=== PATIENT | male | born 1970 | race American Indian/Alaskan Native ===

== ENCOUNTER 2017-05-03 15:48 | Emergency (ER) | payer SELFPAY ==
[2017-05-03] MEDS ORDERED: ASPIRIN PO ONE (16:35)
[2017-05-03] MEDS ORDERED: NITROSTAT SL ONE (16:35)
--- NOTE | 2017-05-03 16:35 | Emergency Department Report ---
Blank Doc - Documentation Documentation: Patient is a 46-year-old [place] male who is presenting with chest discomfort. Patient states the tightness worse at night. Patient states is been off and on for the past week. Patient states this accompanied with shortness of breath and diaphoresis. Patient took her blood pressures morning was elevated. He is on new medications for blood pressure but doesn't seem to be working yet. Line patient will be sent to the main area to undergo a cardiac workup.
[2017-05-03 16:52] LABS: Basophils # (Auto) 0.1 K/mm3 (0.0-0.1); Basophils % (Auto) 0.8 % (0.0-1.8); Eosinophils # (Auto) 0.1 K/mm3 (0.0-0.4); Eosinophils % (Auto) 1.3 % (0.0-4.3); Hematocrit 44.2 % (35.5-45.6); Hemoglobin 14.5 gm/dl (11.8-15.2); Lymphocytes # (Auto) 1.4 K/mm3 (1.2-5.4); Lymphocytes % (Auto) 21.9 % (13.4-35.0); Mean Corpuscular HGB Conc 33 % (32-34); Mean Corpuscular Hemoglobin 29 pg (28-32); Mean Corpuscular Volume 88 fl (84-94); Monocytes # (Auto) 0.4 K/mm3 (0.0-0.8); Monocytes % (Auto) 5.8 % (0.0-7.3); Platelet Count 383 K/mm3 (140-440); Red Blood Count 5.04 M/mm3 (3.65-5.03)
--- NOTE | 2017-05-03 17:01 | Emergency Department Report ---
ED Chest Pain HPI - General Chief Complaint: Chest Pain Stated Complaint: CP/NAUSEA/HEADACHE Time Seen by Provider: 05/03/17 16:30 Source: patient Mode of arrival: Ambulatory Limitations: No Limitations - History of Present Illness Initial Comments: This is patient's second visit to an emergency room since Monday for evaluation of chest pain. He states the chest pain is left-sided to substernal and does not radiate. Oddly he states that he has some discomfort in his left wrist which she thinks is related to a ganglion cyst. He states when he squeezes that area the chest pain seems to improve. However, he also states the chest pain occurs on exertion and is associated with shortness of breath. He denies nausea to me. However the triage note states nausea with headaches. He denies hypertension today however the triage note states recently started blood pressure medicines. He appears to be a somewhat poor historian. He states he was seen at [facility] for similar symptoms in the emergency department on Monday and discharged. MD Complaint: chest pain -: Gradual Onset: during exertion Pain Location: substernal, left chest Pain Radiation: none Severity: moderate Quality: tightness Consistency: intermittent, now resolved Improves With: nothing Worsens With: nothing re: other (states sweaty when he woke up this morning) Other Symptoms: denies: cough, fever, syncope, rash, acid taste in mouth, leg swelling, palpitations, burping Treatments Prior to Arrival: none Aspirin use within the Past 7 Days: (0) No (given aspirin today already) - Related Data On Oral Contraceptives: No Home Medications Medication Instructions Recorded Confirmed Last Taken Hydrochlorothiazide 25 mg PO DAILY 05/03/17 05/03/17 Unknown Allergies Allergy/AdvReac Type Severity Reaction Status Date / Time No Known Allergies Allergy Verified 05/03/17 17:23 Heart Score - HEART Score History: Slightly suspicious EKG: Normal Age: 45-65 Risk factors: 1-2 risk factors Troponin: < normal limit HEART Score: 2 - Critical Actions Critical Actions: 0-3 pts:0.9-1.7%risk of adverse cardiac event.Candidate for discharge ED Review of Systems ROS: Stated complaint: CP/NAUSEA/HEADACHE Other details as noted in HPI Constitutional: denies: chills, fever Eyes: denies: eye pain, eye discharge, vision change ENT: denies: ear pain, throat pain Respiratory: shortness of breath. denies: cough, wheezing Cardiovascular: chest pain. denies: palpitations Endocrine: no symptoms reported Gastrointestinal: denies: abdominal pain, nausea, diarrhea Genitourinary: denies: urgency, dysuria Musculoskeletal: denies: back pain, joint swelling, arthralgia Skin: denies: rash, lesions Neurological: denies: headache, weakness, paresthesias Psychiatric: denies: anxiety, depression Hematological/Lymphatic: denies: easy bleeding, easy bruising ED Past Medical Hx - Past Medical History Hx Hypertension: Yes - Social History Smoking Status: Unknown if ever smoked Substance Use Type: None - Medications Home Medications: Home Medications Medication Instructions Recorded Confirmed Last Taken Type Hydrochlorothiazide 25 mg PO DAILY 05/03/17 05/03/17 Unknown History ED Physical Exam - General Limitations: No Limitations General appearance: alert, in no apparent distress - Head Head exam: Present: atraumatic, normocephalic - Eye Eye exam: Present: normal appearance, PERRL, EOMI. Absent: scleral icterus - ENT ENT exam: Present: mucous membranes moist - Neck Neck exam: Present: normal inspection. Absent: tenderness, meningismus - Respiratory Respiratory exam: Present: normal lung sounds bilaterally. Absent: respiratory distress - Cardiovascular Cardiovascular Exam: Present: regular rate, normal rhythm. Absent: systolic murmur, diastolic murmur, rubs, gallop - GI/Abdominal GI/Abdominal exam: Present: soft, normal bowel sounds. Absent: distended, tenderness, guarding, rebound, rigid - Rectal Rectal exam: Present: deferred - Extremities Exam Extremities exam: Present: other (ganglion cyst left wrist) - Back Exam Back exam: Present: normal inspection - Neurological Exam Neurological exam: Present: alert, oriented X3, CN II-XII intact. Absent: motor sensory deficit - Psychiatric Psychiatric exam: Present: normal affect, normal mood - Skin Skin exam: Present: warm, dry, intact, normal color. Absent: rash ED Course Vital Signs 05/03/17 05/03/17 05/03/17 16:07 17:19 17:22 Temperature 97.5 F L Pulse Rate 74 61 61 Respiratory 18 16 Rate Blood Pressure 156/94 173/96 Blood Pressure 173/96 [Left] O2 Sat by Pulse 98 100 Oximetry - Reevaluation(s) Reevaluation #1: Patient referred to Dr. Almanza. 05/03/17 17:45 SHARI score - Shari Score Age > 65: (0) No Aspirin use within the Past 7 Days: (0) No 3 or more CAD Risk Factors: (0) No 2 or more Angina events in past 24 hrs: (0) No Known CAD with more than 50% Stenosis: (0) No Elevated Cardiac Markers: (0) No ST Deviation Greater than 0.5mm: (0) No SHARI Score: 0 ED Medical Decision Making - Lab Data Result diagrams: 05/03/17 16:39 05/03/17 16:39 Laboratory Results - last 24 hr 05/03/17 16:39 WBC 6.6 RBC 5.04 H Hgb 14.5 Hct 44.2 MCV 88 MCH 29 MCHC 33 RDW 14.0 Plt Count 383 Lymph % (Auto) 21.9 [place] % (Auto) 5.8 Eos % (Auto) 1.3 Baso % (Auto) 0.8 Lymph # 1.4 [place] # 0.4 Eos # 0.1 Baso # 0.1 Seg Neutrophils % 70.2 H Seg Neutrophils # 4.6 Laboratory Results - last 24 hr 05/03/17 05/03/17 16:39 16:39 WBC 6.6 RBC 5.04 H Hgb 14.5 Hct 44.2 MCV 88 MCH 29 MCHC 33 RDW 14.0 Plt Count 383 Lymph % (Auto) 21.9 [place] % (Auto) 5.8 Eos % (Auto) 1.3 Baso % (Auto) 0.8 Lymph # 1.4 [place] # 0.4 Eos # 0.1 Baso # 0.1 Seg Neutrophils % 70.2 H Seg Neutrophils # 4.6 Sodium 134 L Potassium 3.8 Chloride 97.8 L Carbon Dioxide 25 Anion Gap 15 BUN 8 L Creatinine 1.1 Estimated GFR > 60 BUN/Creatinine Ratio 7 Glucose 116 H Calcium 9.5 Total Bilirubin 0.20 AST 19 ALT 15 Alkaline Phosphatase 65 Total Protein 7.8 Albumin 4.6 Albumin/Globulin Ratio 1.4 - EKG Data -: EKG Interpreted by Me EKG shows normal: sinus rhythm, axis, intervals, QRS complexes, ST-T waves Rate: normal - EKG Data Interpretation: normal EKG - Radiology Data interpreted by me: Chest x-ray no acute process Critical care attestation.: If time is entered above; I have spent that time in minutes in the direct care of this critically ill patient, excluding procedure time. ED Disposition Clinical Impression: Essential hypertension Chest pain Qualifiers: Chest pain type: unspecified Qualified Code(s): R07.9 - Chest pain, unspecified Disposition: OP ADMIT IP TO THIS HOSP Is pt being admited?: Yes Does the pt Need Aspirin: Yes Condition: Stable Instructions: Chest Pain (ED), Hypertension (ED) Referrals: PRIMARY CARE, [Primary Care Provider] - 3-5 Days Time of Disposition: 17:44
[2017-05-03 17:06] LABS: Alanine Aminotransferase 15 units/L (7-56); Albumin 4.6 g/dL (3.9-5); BUN/Creatinine Ratio 7; Blood Urea Nitrogen 8 mg/dL (9-20); Calcium 9.5 mg/dL (8.4-10.2); Hemolysis Index 7
[2017-05-03] MEDS ORDERED: NITRO-BID 2% TP ONE (17:44)
--- NOTE | 2017-05-03 17:51 | XRay Report ---
FINAL REPORT PROCEDURE: Chest. TECHNIQUE: PA and lateral views. HISTORY: Chest pain. COMPARISON: No prior studies are available for comparison. FINDINGS: The heart and mediastinum appear normal. The lungs are clear and well expanded. There are no pleural effusions. The soft tissues and regional skeleton are unremarkable. IMPRESSION: Normal study.
--- NOTE | 2017-05-03 18:06 | History and Physical Report ---
History of Present Illness Chief complaint: My chest hurts History of present illness: 46 YO Male with HTN, GERD, Obesity presents to ED for evaluation of Chest pain. Pt seen and evaluated and treated with cardiac enzyme evaluation, ekg, telemetry , and d dimer evaluation which were normal, EKG showed no evidence of ischemia. Pt treated with PPI therapy with improvement in symptoms. Pt noncompliant with outpatient antihypertensive medication. Pt medically optimized and back to usual state of health. Pt discharged home and instructed to f/u pcp 1wk with blood pressure log, and f/u cardiology 5 days for outpatient stress test. Past History Past Medical History: GERD, hypertension Past Surgical History: No surgical history, Other (reviewed) Social history: single Family history: no significant family history (reviewed) Medications and Allergies Allergies Allergy/AdvReac Type Severity Reaction Status Date / Time No Known Allergies Allergy Verified 05/03/17 17:23 Home Medications Medication Instructions Recorded Confirmed Last Taken Type Hydrochlorothiazide 25 mg PO DAILY 05/03/17 05/03/17 Unknown History Pantoprazole [Protonix] 40 mg PO QDAY #30 tablet 05/03/17 Unknown Rx amLODIPine [Norvasc] 5 mg PO DAILY #30 tab 05/03/17 Unknown Rx Review of Systems Constitutional: no weight loss, no weight gain, no fever Ears, nose, mouth and throat: no ear pain, no ear discharge, no tinnitis, no decreased hearing, no nose pain Cardiovascular: chest pain, no orthopnea, no palpitations, no rapid/irregular heart beat, no edema, no syncope, no lightheadedness, no shortness of breath, no dyspnea on exertion, no paroxysmal nocturnal dyspnea, no leg edema, no decreased exercise tolerance Respiratory: no cough, no cough with sputum, no excessive sputum, no hemoptysis , no shortness of breath Gastrointestinal: no nausea, no vomiting, no diarrhea, no constipation, no change in bowel habits Genitourinary Male: no hematuria, no flank pain, no discharge, no urinary hesitancy Rectal: no pain, no incontinence, no bleeding Musculoskeletal: no neck stiffness, no neck pain, no shooting arm pain, no arm numbness/tingling, no low back pain, no shooting leg pain, no leg numbness/ tingling Integumentary: no rash, no redness, no sores, no wounds, no jaundice Neurological: no transient paralysis, no paralysis, no weakness, no parathesias , no numbness, no tingling, no seizures Psychiatric: no anxiety, no memory loss, no change in sleep habits, no sleep disturbances, no insomnia, no hypersomnia, no change in appetite Endocrine: no cold intolerance, no heat intolerance, no polyphagia, no excessive thirst, no polydipsia, no polyuria, no nocturia Hematologic/Lymphatic: no easy bruising, no easy bleeding, no lymphadenopathy, no lymphedema Allergic/Immunologic: no urticaria, no allergic rhinitis, no wheezing, no persistent infections Exam - Constitutional Vitals: Temp Pulse Resp BP Pulse Ox 97.5 F L 61 16 154/92 100 05/03/17 16:07 05/03/17 17:22 05/03/17 17:19 05/03/17 18:02 05/03/17 17:19 General appearance: Present: no acute distress, well-nourished, obese - EENT Eyes: Present: PERRL ENT: hearing intact, clear oral mucosa - Neck Neck: Present: supple, normal ROM - Respiratory Respiratory effort: normal Respiratory: bilateral: CTA - Cardiovascular Heart Sounds: Present: S1 & S2. Absent: rub, click - Extremities Extremities: pulses symmetrical, No edema Peripheral Pulses: within normal limits - Abdominal General gastrointestinal: Present: soft, non-tender, non-distended, normal bowel sounds Male genitourinary: Present: normal - Integumentary Integumentary: Present: clear, warm, dry - Musculoskeletal Musculoskeletal: gait normal, strength equal bilaterally - Psychiatric Psychiatric: appropriate mood/affect, intact judgment & insight - Neurologic Neurologic: CNII-XII intact, moves all extremities Results - Labs CBC & Chem 7: 05/03/17 16:39 05/03/17 16:39 Labs: Abnormal lab results 05/03/17 05/03/17 Range/Units 16:39 16:39 RBC 5.04 H (3.65-5.03) M/mm3 Seg Neutrophils % 70.2 H (40.0-70.0) % Sodium 134 L (137-145) mmol/L Chloride 97.8 L (98-107) mmol/L BUN 8 L (9-20) mg/dL Glucose 116 H (75-100) mg/dL Assessment and Plan - Patient Problems (1) GERD (gastroesophageal reflux disease) Status: Acute Qualifiers: Esophagitis presence: without esophagitis Qualified Code(s): K21.9 - Gastro -esophageal reflux disease without esophagitis Plan to address problem: PPI Therapy, outpatient f/u (2) Atypical chest pain Status: Acute Plan to address problem: secondary to GERD, fu pcp 1wk, cardiology 5 days for stress test (3) Essential hypertension Status: Acute Plan to address problem: resume bp medication,
[2017-05-03 21:02] VITALS: BP 136/77
== END 2017-05-03 22:42 | disposition admitted as inpatient to this hospital (09) ==
LOC: ED 15:48
DX: R07.2 Precordial pain (principal); I10 Essential (primary) hypertension; M25.532 Pain in left wrist
CPT/HCPCS: 36415; 71046; 80053; 84484; 85025; 85379; 93005; 93010

== ENCOUNTER 2017-05-07 06:14 | Emergency (ER) | payer OTHER ==
[2017-05-07 07:09] LABS: Hematocrit 46.9 % (35.5-45.6); Mean Corpuscular HGB Conc 34 % (32-34); Mean Corpuscular Hemoglobin 29 pg (28-32); Mean Corpuscular Volume 85 fl (84-94); Platelet Count 407 K/mm3 (140-440); Red Blood Count 5.49 M/mm3 (3.65-5.03); Red Cell Distribution Width 13.3 % (13.2-15.2)
[2017-05-07 07:17] LABS: Alanine Aminotransferase 17 units/L (7-56); Albumin 4.7 g/dL (3.9-5); BUN/Creatinine Ratio 10; Blood Urea Nitrogen 11 mg/dL (9-20); Calcium 10.3 mg/dL (8.4-10.2); Hemolysis Index 8
[2017-05-07 09:46] LABS: Anisocytosis 1+; Basophils % (Manual) 0 % (0.0-1.8); Platelet Estimate Consistent w Auto; Total Cells Counted 100
[2017-05-07 12:28] LABS: Bacteria,Urine 1+ /HPF (Negative); Bilirubin,Urine NEG (Negative); Blood,Urine NEG (Negative); Color,Urine Straw (Yellow); Protein,Urine <15 mg/dL mg/dL (Negative); Urobilinogen,Urine < 2.0 mg/dL (<2.0)
--- NOTE | 2017-05-07 12:40 | Emergency Department Report ---
ED General Adult HPI - General Chief complaint: Abdominal Pain Stated complaint: ABDOMINAL, BACK PAIN Time Seen by Provider: 05/07/17 12:12 Source: patient Mode of arrival: Ambulatory Limitations: No Limitations - History of Present Illness Initial comments: Patient here with off and on left-sided abdominal pain unsure how long its been there. He was admitted here a week ago for chest pain discharge diagnosis at that time was reflux atypical chest pain and uncontrolled hypertension. He is in the process of following up with his regular doctor to evaluate for a stress test and blood pressure control but came in today to get checked for intermittent left-sided lower abdominal pain. He denies any chest pain denies any fever , no causing black or bloody stool not sure if the pain radiates into his groin no nausea vomiting diarrhea. 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 denies: confusion, chest pain, cough, diaphoresis, headaches, loss of appetite, malaise, nausea/vomiting, rash , seizure, shortness of breath, syncope, weakness - Related Data Home Medications Medication Instructions Recorded Confirmed Last Taken Hydrochlorothiazide 25 mg PO DAILY 05/03/17 05/03/17 Unknown Previous Rx's Medication Instructions Recorded Last Taken Type Pantoprazole [Protonix] 40 mg PO QDAY #30 tablet 05/03/17 Unknown Rx amLODIPine [Norvasc] 5 mg PO DAILY #30 tab 05/03/17 Unknown Rx Ciprofloxacin HCl [Cipro] 500 mg PO BID #30 tablet 05/07/17 Unknown Rx Ibuprofen [Motrin] 400 mg PO Q8H PRN #30 tablet 05/07/17 Unknown Rx Allergies Allergy/AdvReac Type Severity Reaction Status Date / Time No Known Allergies Allergy Verified 05/03/17 17:23 ED Review of Systems ROS: Stated complaint: ABDOMINAL, BACK PAIN Other details as noted in HPI Comment: All other systems reviewed and negative Constitutional: denies: diaphoresis, fever, malaise, weakness Respiratory: denies: cough, orthopnea, shortness of breath, SOB with exertion, SOB at rest, stridor Cardiovascular: denies: chest pain, palpitations, dyspnea on exertion, orthopnea , edema, syncope, paroxysmal nocturnal dyspnea Endocrine: denies: intolerance to cold, intolerance to heat Gastrointestinal: abdominal pain. denies: nausea, vomiting, diarrhea, constipation, hematemesis, melena, hematochezia Genitourinary: denies: hematuria, discharge, testicular pain, testicular mass Neurological: denies: headache, weakness, numbness, paresthesias, confusion, abnormal gait Hematological/Lymphatic: denies: easy bruising ED Past Medical Hx - Past Medical History Previous Medical History?: Yes Hx Hypertension: Yes - Surgical History Past Surgical History?: No - Social History Smoking Status: Never Smoker Substance Use Type: None - Medications Home Medications: Home Medications Medication Instructions Recorded Confirmed Last Taken Type Hydrochlorothiazide 25 mg PO DAILY 05/03/17 05/03/17 Unknown History Pantoprazole [Protonix] 40 mg PO QDAY #30 tablet 05/03/17 Unknown Rx amLODIPine [Norvasc] 5 mg PO DAILY #30 tab 05/03/17 Unknown Rx Ciprofloxacin HCl [Cipro] 500 mg PO BID #30 tablet 05/07/17 Unknown Rx Ibuprofen [Motrin] 400 mg PO Q8H PRN #30 tablet 05/07/17 Unknown Rx ED Physical Exam - General Limitations: No Limitations General appearance: alert, in no apparent distress, anxious - Head Head exam: Present: atraumatic, normocephalic - Eye Eye exam: Present: PERRL, EOMI - ENT ENT exam: Present: normal exam - Neck Neck exam: Present: normal inspection. Absent: tenderness, meningismus - Respiratory Respiratory exam: Present: normal lung sounds bilaterally. Absent: respiratory distress, wheezes, rales, rhonchi, stridor, chest wall tenderness, accessory muscle use, decreased breath sounds, prolonged expiratory - Cardiovascular Cardiovascular Exam: Present: regular rate, normal rhythm, normal heart sounds - GI/Abdominal GI/Abdominal exam: Present: soft, tenderness. Absent: distended, guarding, rebound, rigid, hyperactive bowel sounds, hypoactive bowel sounds, organomegaly , mass, pulsatile mass - Back Exam Back exam: Present: normal inspection, muscle spasm. Absent: CVA tenderness (L) , vertebral tenderness - Neurological Exam Neurological exam: Present: alert, oriented X3, CN II-XII intact. Absent: motor sensory deficit - Skin Skin exam: Present: warm. Absent: cyanosis, diaphoretic, erythema, urticaria, vesicles, petechiae, pallor ED Course Vital Signs 05/07/17 05/07/17 06:25 12:47 Temperature 98.4 F 98.7 F Pulse Rate 83 76 Respiratory 17 18 Rate Blood Pressure 153/98 Blood Pressure 144/86 [Right] O2 Sat by Pulse 99 100 Oximetry - Reevaluation(s) Reevaluation #1: 05/07/17 13:[address] was obtained urinalysis was obtained ED Medical Decision Making - Lab Data Result diagrams: 05/07/17 06:41 05/07/17 06:41 - Radiology Data Radiology results: report reviewed - Medical Decision Making Patient is improved in the ED urinalysis did show positive esterase and few white sputum reds CT was read as process patient is a acute abdomen at this time he does appear to have some abdominal wall strain from lifting at work as well as possible prostatitis he will be placed on antibiotics urine cultures pending he will see his regular doctor in 3 days or return if new alarming symptoms he is pain-free at this time when necessary by mouth and stable for outpatient follow-up Critical care attestation.: If time is entered above; I have spent that time in minutes in the direct care of this critically ill patient, excluding procedure time. ED Disposition Clinical Impression: Abdominal pain, UTI (urinary tract infection) Disposition: - TO HOME OR SELFCARE Is pt being admited?: No Condition: Stable Instructions: Abdominal Pain (ED), Urinary Tract Infection in Men (ED) Additional Instructions: See her doctor in 3 days and return immediately if new or alarming symptoms or call 911 Prescriptions: Ciprofloxacin HCl [Cipro] 500 mg PO BID #30 tablet Ibuprofen [Motrin] 400 mg PO Q8H PRN #30 tablet PRN Reason: Pain Referrals: PRIMARY CARE,MD [Primary Care Provider] - 3-5 Days
[2017-05-07 12:47] VITALS: BP 144/86
--- NOTE | 2017-05-07 13:07 | Cat Scan Report ---
CT ABDOMEN PELVIS WITHOUT CONTRAST: HISTORY: Flank pain. COMPARISON: none. TECHNIQUE: Helical CT in 1.25mm intervals without IV contrast. Sagittal and coronal reconstructions. FINDINGS: Lung bases: Normal. Liver: Normal. Biliary system: Normal. Pancreas: Normal. Spleen: Normal. Kidneys/ureters/bladder: Normal. Adrenal glands: Normal. Aorta: Normal. Intestines: Normal. Appendix: Normal. Pelvic viscera: Normal. Ascites: None. Adenopathy: None. Musculoskeletal: Normal. IMPRESSION: Unremarkable CT scan of the abdomen and pelvis without contrast.
== END 2017-05-07 14:20 | disposition home or self-care (01) ==
LOC: ED 06:14
DX: N39.0 Urinary tract infection, site not specified (principal)
CPT/HCPCS: 36415; 74176; 80053; 81001; 85007; 85025; 87086; 99284

== ENCOUNTER 2017-08-13 20:55 | Emergency (ER) | payer SELFPAY ==
[2017-08-13] MEDS ORDERED: ASPIRIN PO ONE (21:06)
[2017-08-13 21:28] LABS: Basophils % (Auto) 0.8 % (0.0-1.8); Eosinophils # (Auto) 0.2 K/mm3 (0.0-0.4); Eosinophils % (Auto) 4.1 % (0.0-4.3); Hematocrit 41.6 % (35.5-45.6); Hemoglobin 14.1 gm/dl (11.8-15.2); Lymphocytes # (Auto) 1.6 K/mm3 (1.2-5.4); Lymphocytes % (Auto) 27.6 % (13.4-35.0); Mean Corpuscular HGB Conc 34 % (32-34); Mean Corpuscular Hemoglobin 30 pg (28-32); Mean Corpuscular Volume 87 fl (84-94); Monocytes # (Auto) 0.4 K/mm3 (0.0-0.8); Monocytes % (Auto) 6.4 % (0.0-7.3); Platelet Count 353 K/mm3 (140-440); Red Blood Count 4.77 M/mm3 (3.65-5.03); Red Cell Distribution Width 14.5 % (13.2-15.2)
[2017-08-13 21:41] LABS: BUN/Creatinine Ratio 8; Blood Urea Nitrogen 8 mg/dL (9-20); Calcium 9.5 mg/dL (8.4-10.2); Hemolysis Index 6
[2017-08-14 01:17] VITALS: BP 126/82
[2017-08-14] MEDS ORDERED: TYLENOL PO ONE (01:18)
[2017-08-14] MEDS ORDERED: LIDOCAINE VISCOUS 2% PO ONE (01:18)
[2017-08-14] MEDS ORDERED: ALUM-MAG HYDROX-SIMETH 200-200-20MG/5ML PO ONE (01:18)
--- NOTE | 2017-08-14 01:23 | Emergency Department Report ---
HPI - General Chief Complaint: Chest Pain Time Seen by Provider: 08/14/17 01:10 - [facility] HPI: The patient is a 47-year-old male who presents for evaluation of chest pain. The patient reports chest pain onset 2 hours prior to arrival. He says that his chest pain has been left-sided in location, burning in quality, constant since onset although waxing and waning, currently mild in severity. The patient denies fever, neck pain, parasthesias, dyspnea, cough, hemoptysis, palpitations , dizziness, syncope, unilateral leg swelling, calf muscle pain. Patient also denies cocaine or other stimulant use, history of DVT or PE, recent immobilization, or history of cancer. ED Past Medical Hx - Past Medical History Previous Medical History?: No Hx Hypertension: Yes - Surgical History Past Surgical History?: No - Social History Smoking Status: Never Smoker Substance Use Type: Alcohol - Medications Home Medications: Home Medications Medication Instructions Recorded Confirmed Last Taken Type Hydrochlorothiazide 25 mg PO DAILY 05/03/17 05/03/17 Unknown History Pantoprazole [Protonix] 40 mg PO QDAY #30 tablet 05/03/17 Unknown Rx amLODIPine [Norvasc] 5 mg PO DAILY #30 tab 05/03/17 Unknown Rx Ciprofloxacin HCl [Cipro] 500 mg PO BID #30 tablet 05/07/17 Unknown Rx Ibuprofen [Motrin] 400 mg PO Q8H PRN #30 tablet 05/07/17 Unknown Rx Cyclobenzaprine HCl [Flexeril 5 MG 5 mg PO Q8HR PRN #15 tab 08/14/17 Unknown Rx TAB] Famotidine [Pepcid] 20 mg PO BID #30 tablet 08/14/17 Unknown Rx Omeprazole Magnesium [PriLOSEC Otc] 20 mg PO QDAY #14 tablet. 08/14/17 Unknown Rx Ondansetron [Zofran TAB] 4 mg PO Q8HR PRN #20 tablet 08/14/17 Unknown Rx ED Review of Systems ROS: Stated complaint: CP Other details as noted in HPI Constitutional: denies: fever ENT: denies: throat or neck pain Respiratory: denies: cough, shortness of breath Cardiovascular: reports chest pain Endocrine: denies unexplained weight loss or gain Gastrointestinal: denies: abdominal pain, nausea Genitourinary: denies: dysuria Musculoskeletal: denies: leg swelling Skin: denies: rash Neurological: denies: headache Hematological/Lymphatic: denies: easy bleeding or easy bruising Psych: denies sadness or hopelessness Physical Exam - Physical Exam Vital Signs: Vital Signs 08/13/17 08/14/17 21:02 01:17 Temperature 98.8 F 98.3 F Pulse Rate 82 63 Respiratory 18 24 Rate Blood Pressure 149/78 Blood Pressure 126/82 [Left] O2 Sat by Pulse 98 97 Oximetry Physical Exam: General: well-nourished, well-developed, no acute distress Head: Normocephalic, atraumatic Eyes: normal sclera ENT: Mucous membranes are pink and moist Neck: trachea midline, neck supple, No neck stiffness, no cervical adenopathy Respiratory: Breath sounds equal bilaterally, no wheezing, rales, or rhonchi Cardio: S1 and S2 present, no murmurs, rubs, gallops, capillary refill is brisk Abdomen: Normoactive bowel sounds, soft abdomen, no rigidity, no guarding or rebound tenderness Chest WALL/Back: No tenderness to palpation of the chest wall, no CVA tenderness with percussion Musc: No pitting edema Skin: No rash Neuro: no facial drooping, normal speech Psych: Normal affect ED Course Vital Signs 08/13/17 08/14/17 21:02 01:17 Temperature 98.8 F 98.3 F Pulse Rate 82 63 Respiratory 18 24 Rate Blood Pressure 149/78 Blood Pressure 126/82 [Left] O2 Sat by Pulse 98 97 Oximetry ED Medical Decision Making - Lab Data Result diagrams: 08/13/17 21:11 08/13/17 21:11 - Medical Decision Making The patient was seen and examined by myself. The patient is placed on a cardiac exercise physiologist and continuous pulse ox. On initial evaluation, the patient was found to be in no distress. EKG was negative for findings suggestive of acute cardiac infarct. Labs and imaging are obtained. Historical findings are suggestive of gastroesophageal reflux disease, and the patient's chest pain is atypical in character for ACS etiology. The patient is given a GI cocktail and Tylenol for his pain. Chest x-ray is negative for pneumothorax, focal consolidation, pulmonary vascular congestion, pleural effusion, or other obvious acute cardiopulmonary disease process. Lab results were non-concerning including levels of troponin, WBC, hemoglobin, hematocrit, electrolytes, renal function. The patient was reevaluated and reported that their symptoms were markedly improved. As the patient has a SHARI risk score less than 2, and a well 's score less than 2, the patient is at low risk of ACS or pulmonary emboli etiology of their symptoms. The patient is stable for discharge with outpatient follow-up. The patient is given follow-up and return instructions. The patient expressed understanding and agreed with the plan. The patient is discharged in stable condition. Critical care attestation.: If time is entered above; I have spent that time in minutes in the direct care of this critically ill patient, excluding procedure time. ED Disposition Clinical Impression: Acute chest pain Disposition: - TO HOME OR SELFCARE Is pt being admited?: No Does the pt Need Aspirin: No Condition: Stable Instructions: Chest Pain (ED), Gastroesophageal Reflux Disease (ED), Diet for Ulcers and Gastritis (ED) Referrals: CAMRON BENTLEY MD [Staff Physician] - 3-5 Days [facility] [Outside] - 3-5 Days Time of Disposition: 01:21
--- NOTE | 2017-08-14 01:31 | XRay Report ---
FINAL REPORT PROCEDURE: XR CHEST 1V AP TECHNIQUE: Chest radiograph anteroposterior view. CPT 65917 HISTORY: chest pain COMPARISON: 05/03/2017 FINDINGS: Heart: Normal. Mediastinum/Vessels: Normal. Lungs/Pleural space: Normal. Bony thorax: No acute osseous abnormality. Life support devices: None. IMPRESSION: No acute cardiopulmonary abnormality.
== END 2017-08-14 02:11 | disposition home or self-care (01) ==
LOC: ED 20:55
DX: R07.89 Other chest pain (principal); I10 Essential (primary) hypertension
CPT/HCPCS: 36415; 71045; 80048; 84484; 85025; 93005; 93010

== ENCOUNTER 2017-09-23 21:23 | Emergency (ER) | payer SELFPAY ==
[2017-09-23 21:58] VITALS: BP 147/91
[2017-09-23] MEDS ORDERED: ASPIRIN PO ONE (21:58)
[2017-09-23 22:43] LABS: Basophils % (Auto) 0.6 % (0.0-1.8); Eosinophils # (Auto) 0.1 K/mm3 (0.0-0.4); Eosinophils % (Auto) 0.9 % (0.0-4.3); Lymphocytes # (Auto) 1.5 K/mm3 (1.2-5.4); Lymphocytes % (Auto) 20.9 % (13.4-35.0); Mean Corpuscular HGB Conc 36 % (32-34); Mean Corpuscular Hemoglobin 31 pg (28-32); Mean Corpuscular Volume 87 fl (84-94); Monocytes # (Auto) 0.5 K/mm3 (0.0-0.8); Monocytes % (Auto) 6.5 % (0.0-7.3); Platelet Count 330 K/mm3 (140-440); Red Blood Count 4.49 M/mm3 (3.65-5.03); Red Cell Distribution Width 14.3 % (13.2-15.2)
[2017-09-23 22:44] LABS: BUN/Creatinine Ratio 8; Blood Urea Nitrogen 8 mg/dL (9-20); Calcium 9.5 mg/dL (8.4-10.2); Hemolysis Index 6
[2017-09-23 22:50] LABS: Hematocrit 38.9 % (35.5-45.6); Hemoglobin 14.1 gm/dl (11.8-15.2)
== END 2017-09-23 23:50 | disposition left against medical advice (07) ==
LOC: ED 21:23
DX: R42 Dizziness and giddiness (principal); R00.2 Palpitations; Z53.21 Procedure and treatment not carried out due to patient leaving prior to being seen by health care provider
CPT/HCPCS: 36415; 80048; 84484; 85025; 93005; 93010

== ENCOUNTER 2017-09-24 02:56 | Emergency (ER) | payer SELFPAY ==
--- NOTE | 2017-09-24 06:26 | Emergency Department Report ---
<KI WHEELER - Last Filed: 09/24/17 06:20> ED General Adult HPI - General Chief complaint: Arrhythmia/Palpitations Stated complaint: PALPITATIONS/LIGHT HEADED Time Seen by Provider: 09/24/17 06:15 Source: patient Mode of arrival: Ambulatory Limitations: No Limitations - History of Present Illness Initial comments: 47-year-old male who presents for evaluation of heart racing and lightheadedness as well as chest pain. Patient reports that he's been having palpitations and lightheadedness since 11 AM but has been off and on for the beginning of the year. Patient reports currently that palpitations has resolved. Patient reports that his chest pain has been of the left thigh. Patient denies fever, neck pain, dyspnea, cough, Haemophilus syncopal calf muscle pain. He does admit to palpitations and dizziness and bilateral lower leg edema. She denies any cocaine or other stimulant use, history of DVTs or PEs, no recent immobilization or history of any cancers. Patient does have a past medical history of hypertension and acid reflux. Patient was last seen here 08/14/2017 for chest pain and was diagnosed with acid reflux was placed on omeprazole Pepcid and Zofran. Patient reports that while taken the medication and it has helped. -: month(s) (waxing and waning since the beginning of the year), This morning ( 11am on Monday) Location: chest Severity scale (0 -10): 4 Consistency: intermittent Associated Symptoms: chest pain, other (palpitations and dizziness) - Related Data Home Medications Medication Instructions Recorded Confirmed Last Taken Hydrochlorothiazide 25 mg PO DAILY 05/03/17 05/03/17 Unknown Previous Rx's Medication Instructions Recorded Last Taken Type Pantoprazole [Protonix] 40 mg PO QDAY #30 tablet 05/03/17 Unknown Rx amLODIPine [Norvasc] 5 mg PO DAILY #30 tab 05/03/17 Unknown Rx Ciprofloxacin HCl [Cipro] 500 mg PO BID #30 tablet 05/07/17 Unknown Rx Ibuprofen [Motrin] 400 mg PO Q8H PRN #30 tablet 05/07/17 Unknown Rx Cyclobenzaprine HCl [Flexeril 5 MG 5 mg PO Q8HR PRN #15 tab 08/14/17 Unknown Rx TAB] Famotidine [Pepcid] 20 mg PO BID #30 tablet 08/14/17 Unknown Rx Omeprazole Magnesium [PriLOSEC Otc] 20 mg PO QDAY #14 tablet. 08/14/17 Unknown Rx Ondansetron [Zofran TAB] 4 mg PO Q8HR PRN #20 tablet 08/14/17 Unknown Rx Ibuprofen [Motrin] 600 mg PO Q8H PRN #30 tablet 09/24/17 Unknown Rx Allergies Allergy/AdvReac Type Severity Reaction Status Date / Time No Known Allergies Allergy Verified 05/03/17 17:23 ED Review of Systems ROS: Stated complaint: PALPITATIONS/LIGHT HEADED Other details as noted in HPI Constitutional: denies: chills, fever Respiratory: denies: cough, shortness of breath, wheezing Cardiovascular: chest pain (/10), palpitations Musculoskeletal: other (bilateral lower leg swelling) Neurological: other (dizziness) ED Past Medical Hx - Past Medical History Hx Hypertension: Yes Hx GERD: Yes - Social History Smoking Status: Never Smoker Substance Use Type: None - Medications Home Medications: Home Medications Medication Instructions Recorded Confirmed Last Taken Type Hydrochlorothiazide 25 mg PO DAILY 05/03/17 05/03/17 Unknown History Pantoprazole [Protonix] 40 mg PO QDAY #30 tablet 05/03/17 Unknown Rx amLODIPine [Norvasc] 5 mg PO DAILY #30 tab 05/03/17 Unknown Rx Ciprofloxacin HCl [Cipro] 500 mg PO BID #30 tablet 05/07/17 Unknown Rx Ibuprofen [Motrin] 400 mg PO Q8H PRN #30 tablet 05/07/17 Unknown Rx Cyclobenzaprine HCl [Flexeril 5 MG 5 mg PO Q8HR PRN #15 tab 08/14/17 Unknown Rx TAB] Famotidine [Pepcid] 20 mg PO BID #30 tablet 08/14/17 Unknown Rx Omeprazole Magnesium [PriLOSEC Otc] 20 mg PO QDAY #14 tablet. 08/14/17 Unknown Rx Ondansetron [Zofran TAB] 4 mg PO Q8HR PRN #20 tablet 08/14/17 Unknown Rx Ibuprofen [Motrin] 600 mg PO Q8H PRN #30 tablet 09/24/17 Unknown Rx ED Physical Exam - General Limitations: No Limitations General appearance: alert, in no apparent distress - Head Head exam: Present: atraumatic, normocephalic - Eye Eye exam: Present: EOMI - ENT ENT exam: Present: mucous membranes moist - Respiratory Respiratory exam: Present: normal lung sounds bilaterally. Absent: respiratory distress - Cardiovascular Cardiovascular Exam: Present: regular rate, normal rhythm. Absent: systolic murmur, diastolic murmur, rubs, gallop - GI/Abdominal GI/Abdominal exam: Present: soft, normal bowel sounds - Extremities Exam Extremities exam: Present: pedal edema. Absent: tenderness - Back Exam Back exam: Present: normal inspection - Neurological Exam Neurological exam: Present: alert, oriented X3 - Psychiatric Psychiatric exam: Present: normal affect, normal mood ED Course Vital Signs 09/24/17 09/24/17 03:32 06:40 Temperature 98.3 F 98.6 F Pulse Rate 76 76 Respiratory 18 18 Rate Blood Pressure 132/84 Blood Pressure 136/78 [Left] O2 Sat by Pulse 98 98 Oximetry ED Medical Decision Making - Medical Decision Making Patient has been evaluated by this provider in fast track. On clinical evaluation the patient was found to be no distress. EKG was negative for findings suggestive of acute cardiac infarct. Labs and imaging are pending. Critical care attestation.: If time is entered above; I have spent that time in minutes in the direct care of this critically ill patient, excluding procedure time. ED Disposition Clinical Impression: Intermittent chest pain Disposition: DC-01 TO HOME OR SELFCARE Condition: Stable Instructions: Chest Pain (ED) Additional Instructions: Follow-up with a primary care/oyster culturist doctor in 3-5 days or if symptoms worsen and continue return to emergency room as soon as possible. Prescriptions: Ibuprofen [Motrin] 600 mg PO Q8H PRN #30 tablet PRN Reason: Pain Referrals: PRIMARY CARE, [Primary Care Provider] - 3-5 Days DEVONTE PEREZ MD [Staff Physician] - 3-5 Days NEO GOMES MD [Staff Physician] - 3-5 Days [facility] [Outside] - 3-5 Days [facility] [Outside] - 3-5 Days Forms: Work/School Release Form(ED) <CHARLOTTE GARCIA - Last Filed: 09/24/17 08:44> ED Physical Exam - Cardiovascular Cardiovascular Exam: Present: normal heart sounds. Absent: bradycardia, tachycardia, irregular rhythm - Extremities Exam Extremities exam: Present: normal inspection, full ROM. Absent: calf tenderness - Back Exam Back exam: Present: full ROM - Neurological Exam Neurological exam: Present: normal gait ED Course - Reevaluation(s) Reevaluation #1: 09/24/17 08:34 Patient is speaking in full sentences with no signs of distress noted. Reevaluation #2: 09/24/17 08:34 Patient stated that currently all his symptoms of chest pain and palpitation has resolved. ED Medical Decision Making - Lab Data Result diagrams: 09/24/17 06:31 09/24/17 06:31 - Medical Decision Making This is a 47-year-old male that was signed out to be by provider MANUELA Tafoya for pending labs. Patient presents with intermittent chest pain. Patient stated that when he develops these symptoms he takes omeprazole and symptoms resolved. Patient stated that he had a normal negative stress test last month in [facility]. Patient denies following up with a oyster culturist but stated he will. Patient is stable and was examined by me and Sharon Wheeler. SHARI and HEART score 0 pints. Wells criteria for DVT/SVT/PE 0 points. Negative d-dimmer. EKG normal sinus rhythm with no significant changes in ST. Chest xray dictated by the radiologist. PAtient is notified of the Xray report with no questions noted. Labs within normal limits. Negative troponin x2. I will discharge patient with Motrin. Patient was instructed to Follow-up with a primary care/oyster culturist doctor in 3-5 days or if symptoms worsen and continue return to emergency room as soon as possible. At time of discharge, the patient does not seem toxic or ill in appearance. No acute signs of distress noted. Patient agrees to discharge treatment plan of care. No further questions noted by the patient. ED Disposition Is pt being admited?: No Does the pt Need Aspirin: No
[2017-09-24 06:46] LABS: Basophils % (Auto) 0.7 % (0.0-1.8); Eosinophils # (Auto) 0.1 K/mm3 (0.0-0.4); Eosinophils % (Auto) 1.9 % (0.0-4.3); Hematocrit 41.6 % (35.5-45.6); Lymphocytes # (Auto) 2.3 K/mm3 (1.2-5.4); Lymphocytes % (Auto) 32.7 % (13.4-35.0); Mean Corpuscular HGB Conc 34 % (32-34); Mean Corpuscular Hemoglobin 30 pg (28-32); Mean Corpuscular Volume 88 fl (84-94); Monocytes # (Auto) 0.5 K/mm3 (0.0-0.8); Monocytes % (Auto) 7.7 % (0.0-7.3); Platelet Count 316 K/mm3 (140-440); Red Blood Count 4.74 M/mm3 (3.65-5.03); Red Cell Distribution Width 14.5 % (13.2-15.2)
[2017-09-24 07:05] LABS: BUN/Creatinine Ratio 8; Blood Urea Nitrogen 8 mg/dL (9-20); Calcium 9.6 mg/dL (8.4-10.2); Hemolysis Index 6
--- NOTE | 2017-09-24 07:34 | XRay Report ---
FINAL REPORT EXAM: XR CHEST ROUTINE 2V HISTORY: chest pain with palpitation and dizziness TECHNIQUE: PA and lateral chest radiographs PRIORS: 08/14/2017 FINDINGS: No mediastinal shift. Cardiac silhouette is not enlarged. No pneumothorax, effusion, or focal pulmonary opacity. No acute skeletal finding. IMPRESSION: No focal pulmonary opacity.
[2017-09-24 09:39] VITALS: BP 145/93
== END 2017-09-24 09:38 | disposition home or self-care (01) ==
LOC: ED 02:56
DX: R07.89 Other chest pain (principal); R00.2 Palpitations; I10 Essential (primary) hypertension; K21.9 Gastro-esophageal reflux disease without esophagitis
CPT/HCPCS: 36415; 71046; 80048; 83880; 84484; 85025; 85379; 99283

== ENCOUNTER 2017-12-17 02:02 | Emergency (ER) | payer OTHER ==
[2017-12-17 03:14] LABS: Basophils % (Auto) 0.3 % (0.0-1.8); Eosinophils # (Auto) 0.1 K/mm3 (0.0-0.4); Eosinophils % (Auto) 1.9 % (0.0-4.3); Hematocrit 45.2 % (35.5-45.6); Hemoglobin 15.2 gm/dl (11.8-15.2); Lymphocytes # (Auto) 1.9 K/mm3 (1.2-5.4); Lymphocytes % (Auto) 26.8 % (13.4-35.0); Mean Corpuscular HGB Conc 34 % (32-34); Mean Corpuscular Hemoglobin 29 pg (28-32); Mean Corpuscular Volume 87 fl (84-94); Monocytes # (Auto) 0.4 K/mm3 (0.0-0.8); Monocytes % (Auto) 5.3 % (0.0-7.3); Platelet Count 359 K/mm3 (140-440); Red Blood Count 5.18 M/mm3 (3.65-5.03)
[2017-12-17 03:35] LABS: Alanine Aminotransferase 21 units/L (7-56); Albumin 4.7 g/dL (3.9-5); BUN/Creatinine Ratio 7; Blood Urea Nitrogen 8 mg/dL (9-20); Calcium 9.4 mg/dL (8.4-10.2); Hemolysis Index 13
--- NOTE | 2017-12-17 04:05 | Cat Scan Report ---
FINAL REPORT EXAM: CT FACIAL BONES WO CON HISTORY: Trauma COMPARISON: CT of the head from the same date. TECHNIQUE:: Axial images obtained through the facial bones. Additional sagittal and coronal reformatted images were obtained. FINDINGS:: Oribtal rims, zygomatic arches, ptyergoid plates, and mandible are intact. No depressed nasal bone fracture. No intraocular or retrobulbar hematoma. Optic nerves and extraocular musculature are symmetric in morphology. No hemorrhagic air fluid levels in the paranasal sinuses. [id number]-hvliwgmi mucosal thickening ethmoid air cells. Multiple dental caries and periodontal disease. Incomplete fusion of posterior arch of C1, anatomic variant. IMPRESSION:: No acute facial fracture.
--- NOTE | 2017-12-17 04:36 | Cat Scan Report ---
FINAL REPORT PROCEDURE: CT CERVICAL SPINE WO CON TECHNIQUE: Computerized tomography of the cervical spine was performed from the skull base to T1 without contrast material. HISTORY: Trauma COMPARISON: No prior studies are available for comparison. FINDINGS: The skull base and foramen magnum are intact. The cervical vertebrae are intact. There are no fractures or malalignments. There is no facet dislocation. The soft tissues are unremarkable. IMPRESSION: No significant abnormality.
--- NOTE | 2017-12-17 05:14 | XRay Report ---
FINAL REPORT PROCEDURE: XR CHEST 1V AP TECHNIQUE: Chest radiograph anteroposterior view. CPT 58908 HISTORY: Trauma COMPARISON: 09/24/2017 FINDINGS: Heart: Heart is borderline enlarged Mediastinum/Vessels: Normal. Lungs/Pleural space: Suboptimal inspiration. There are no infiltrates, effusions or pneumothoraces.. Bony thorax: No acute osseous abnormality. Life support devices: None. IMPRESSION: No acute cardiopulmonary abnormality.
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
[2017-12-17 06:25] VITALS: BP 135/77
--- NOTE | 2017-12-18 07:10 | Cat Scan Report ---
FINAL REPORT EXAM: CT HEAD/BRAIN WO CON HISTORY: Trauma COMPARISON: None available. TECHNIQUE: Axial images obtained skull base through vertex. FINDINGS: No acute intracranial hemorrhage, midline shift or pathologic extra axial fluid collection. Ventricles and cisterns are normal in size and configuration for the patient's age. Schilling-white differentiation preserved. Calvarium grossly intact. Soft tissue swelling hematoma along the left frontal calvarium. Visualized ocular globes are grossly unremarkable. Mild to moderate mucosal thickening the visualized paranasal sinuses. Mastoid air cells are clear. Incomplete fusion of posterior arch of C1, anatomic variant. IMPRESSION: No grossly acute intracranial abnormality. Soft tissue swelling over the left frontal calvarium. No calvarial fracture.
== END 2017-12-17 06:23 ==
LOC: ED 02:02
DX: S01.112A Laceration without foreign body of left eyelid and periocular area, initial encounter (principal); F10.929 Alcohol use, unspecified with intoxication, unspecified; I10 Essential (primary) hypertension; K21.9 Gastro-esophageal reflux disease without esophagitis; V89.2XXA Person injured in unspecified motor-vehicle accident, traffic, initial encounter; Y93.89 Activity, other specified; Y92.488 Other paved roadways as the place of occurrence of the external cause; Y99.8 Other external cause status
CPT/HCPCS: 36415; 70450; 70486; 71045; 72125; 80053; 84484; 85025; 93005; 93010; 99284; G0480; 80320